=== PATIENT | female | born 1940 | race Caucasian/White ===

== ENCOUNTER → 2017-11-05 | Outpatient (CLI) | payer OTHER ==
[~2017-11-05] MED LIST: ABILIFY10 MG PO; ABILIFY5 MG PO; ADVAIR 100/501 DISK IH; ADVAIR HFA120 INHALA IH; AMOX TR-K CLV1 EAC4 PO; ASPIRIN81 M2 PO; CALCIUM + D SO1 EACH PO; CRESTOR20 MG PO; ELAVIL25 MG PO; ESCITALOPRAM OX10 MG PO; FIORICET,ESG1 TABLET PO; FLAX SEED OIL1 EACH PO; HYDROCHLOROTHIA25 MG PO; IPRATR-ALBUTEROL3 ML IH; KEPPRA500 MG PO; KLOR-CON20 MEQ PO; LAMICTAL25 MG PO; LASIX20 MG PO; LEVOTHYROXINE25 MCG PO; LEXAPRO10 MG PO; LO-DOSE ASPIRIN81 M1 PO; LOPRESSOR25 MG PO; NORVASC5 MG PO; POTASSIUM CHLO20 ME1 PO; PREDNISONE2.5 MG PO; PREDNISONE50 MG PO; REMERON15 M2 PO; SODIUM CHLORIDE1 G1 PO; SPIRIVA1 INHALATI IH; SYNTHROID25 MCG PO; TRAZODONE HCL100 MG PO; TYLENOL REGULA325 MG PO; ZOCOR40 MG PO; ZOLPIDEM TARTRAT5 MG PO
== END | disposition home or self-care (01) ==
LOC: NUC 08:51
DX: R25.1 Tremor, unspecified (principal)
CPT/HCPCS: 78607; A9584